=== PATIENT | female | born 1985 | race Two or more races ===

== ENCOUNTER 2017-01-08 09:16 | Emergency (ER) | payer OTHER ==
[~2017-01-08] VITALS: Ht 167.6 cm; Wt 108.9 kg
[2017-01-08 10:08] LABS: BASOPHIL % 0.5 % (0-2); PLATELET COUNT 196 x10^3mcL (130-400)
[2017-01-08 10:09] LABS: RED CELL DISTRIBUTION WIDTH 15.7 % (11.5-14.5)
[2017-01-08 11:14] VITALS: BP 146/79
== END 2017-01-08 11:14 | disposition home or self-care (01) ==
LOC: ED 09:16
PROVIDERS: Emergency Medicine
DX: N99.89 Other postprocedural complications and disorders of genitourinary system (principal)

== ENCOUNTER 2017-04-12 17:33 | Emergency (ER) | payer OTHER ==
[2017-04-12 20:04] LABS: UA SPECIFIC GRAVITY 1.025 (1.005-1.035); microscopic required? YES; urine erythrocyte 3+ (NEGATIVE)
[2017-04-12 20:30] VITALS: BP 144/96
== END 2017-04-12 20:30 | disposition home or self-care (01) ==
LOC: ED 17:33
DX: N39.0 Urinary tract infection, site not specified (principal); I10 Essential (primary) hypertension

== ENCOUNTER 2017-05-09 08:25 | Emergency (ER) | payer OTHER ==
[~2017-05-09] VITALS: Ht 170.2 cm; Wt 1118.3 kg
[2017-05-09 08:32] VITALS: BP 150/94
[2017-05-09 10:49] LABS: BASOPHIL % 0.5 % (0-2); PLATELET COUNT 204 x10^3mcL (130-400)
[2017-05-09 10:51] LABS: UA SPECIFIC GRAVITY 1.025 (1.005-1.035); microscopic required? YES; urine erythrocyte TRACE (NEGATIVE)
[2017-05-09 11:09] LABS: CALCIUM 9.2 mg/dL (8.5-10.1); CARBON DIOXIDE 26.7 mmol/L (21-32); CHLORIDE SERUM 105 mmol/L (98-107); CREATININE SERUM 0.6 mg/dL (0.6-1.0); GFR1 > 60 mL/min; GLUCOSE SERUM 92 mg/dL (74-106); POTASSIUM SERUM 4.3 mmol/L (3.5-5.1); SODIUM SERUM 140 mmol/L (136-145)
[2017-05-09 11:14] LABS: ALBUMIN 3.7 g/dL (3.4-5.0); ALKALINE PHOSPHATASE 94 U/L (46-116); ALT/SGPT 62 U/L (14-59); AST/SGOT 49 U/L (15-37); BILIRUBIN TOTAL 0.42 mg/dL (0.20-1.00); TOTAL PROTEIN, SERUM 7.5 g/dL (6.4-8.2)
[2017-05-09 11:17] LABS: RED CELL DISTRIBUTION WIDTH 15.7 % (11.5-14.5)
== END 2017-05-09 12:16 | disposition home or self-care (01) ==
LOC: ED 08:25
PROVIDERS: Specialist
DX: O26.891 Other specified pregnancy related conditions, first trimester (principal); M54.5 Low back pain; I10 Essential (primary) hypertension; E66.9 Obesity, unspecified; Z3A.01 Less than 8 weeks gestation of pregnancy
CPT/HCPCS: 36415

== ENCOUNTER 2017-06-17 20:00 | Emergency (ER) | payer OTHER ==
[2017-06-17 21:00] VITALS: BP 117/74
== END 2017-06-17 22:33 | disposition home or self-care (01) ==
LOC: ED 20:00
DX: O26.891 Other specified pregnancy related conditions, first trimester (principal); R10.30 Lower abdominal pain, unspecified; O99.341 Other mental disorders complicating pregnancy, first trimester; F41.9 Anxiety disorder, unspecified; Z3A.13 13 weeks gestation of pregnancy

== ENCOUNTER 2018-06-02 09:24 | Emergency (ER) | payer OTHER ==
[~2018-06-02] VITALS: Ht 170.2 cm; Wt 120.7 kg
[2018-06-02 09:27] VITALS: Ht 170.2 cm; Wt 120.7 kg
[2018-06-02 10:11] LABS: BASOPHIL % 0.3 % (0-2); PLATELET COUNT 240 x10^3mcL (130-400); RED CELL DISTRIBUTION WIDTH 15.4 % (11.5-14.5)
[2018-06-02 10:23] LABS: SODIUM SERUM 140 mmol/L (136-145)
[2018-06-02 10:25] LABS: CARBON DIOXIDE 25.1 mmol/L (21-32); CHLORIDE SERUM 105 mmol/L (98-107); CREATININE SERUM 0.6 mg/dL (0.6-1.0); GFR1 > 60 mL/min; GLUCOSE SERUM 92 mg/dL (74-106); POTASSIUM SERUM 2.7 mmol/L (3.5-5.1)
[2018-06-02 10:26] LABS: CALCIUM 8.7 mg/dL (8.5-10.1)
[2018-06-02 10:34] LABS: ALBUMIN 3.5 g/dL (3.4-5.0)
[2018-06-02 10:41] LABS: ALKALINE PHOSPHATASE 108 U/L (46-116); ALT/SGPT 25 U/L (14-59); AST/SGOT 17 U/L (15-37); BILIRUBIN TOTAL 0.6 mg/dL (0.20-1.00); TOTAL PROTEIN, SERUM 7.3 g/dL (6.4-8.2)
[2018-06-02 15:30] VITALS: BP 132/79
== END 2018-06-02 15:30 | disposition home or self-care (01) ==
LOC: ED 09:24
PROVIDERS: Emergency Medicine
DX: E87.6 Hypokalemia (principal); R07.89 Other chest pain; R42 Dizziness and giddiness; I10 Essential (primary) hypertension
CPT/HCPCS: 36600; 83880; J1885; J3475; J3480; J7030; Q0092

== ENCOUNTER 2018-09-06 17:18 | Emergency (ER) | payer OTHER ==
[~2018-09-06] VITALS: Ht 170.2 cm; Wt 109.8 kg
[2018-09-06 18:53] VITALS: BP 137/105
== END 2018-09-06 18:53 | disposition home or self-care (01) ==
LOC: ED 17:18
DX: R51 Headache (principal); I10 Essential (primary) hypertension
CPT/HCPCS: J2765